=== PATIENT | male | born 1965 | race Caucasian/White ===

== ENCOUNTER → 2018-02-25 | Outpatient (CLI) | payer MEDICAID ==
[~2018-02-25] MED LIST: AMLO5TAB2 PO; ASPI-515 PO; GABA-827 PO; IBUP-1222 PO; LORA10TA3 PO; None per pt.; OMEP-110 PO; TAMS0.4C2 PO
== END ==
LOC: STAR 10:37
PROVIDERS: ATTEND Internal Medicine Gastroenterology
DX: Z02.9 Encounter for administrative examinations, unspecified (principal)

== ENCOUNTER 2018-03-04 07:07 | Day surgery (SDC) | payer MEDICAID ==
[~2018-03-04] VITALS: Ht 172.7 cm; Wt 136.0 kg
[~2018-03-04 07:07] MED LIST changes: -AMLO5TAB2 PO; -ASPI-515 PO; -GABA-827 PO; -IBUP-1222 PO; -LORA10TA3 PO; -OMEP-110 PO; -TAMS0.4C2 PO
[2018-03-04] MEDS ORDERED: LACTATED RINGERS 1,000 ML IV SCH (07:46)
[2018-03-04] MEDS ORDERED: OMEP-110 PO (08:18)
[2018-03-04] MEDS ORDERED: LORA10TA3 PO (08:18)
[2018-03-04] MEDS ORDERED: AMLO5TAB2 PO (08:18)
[2018-03-04] MEDS ORDERED: IBUP-1222 PO (08:18)
[2018-03-04] MEDS ORDERED: ASPI-515 PO (08:18)
[2018-03-04] MEDS ORDERED: GABA-827 PO (08:18)
[2018-03-04] MEDS ORDERED: TAMS0.4C2 PO (08:18)
[2018-03-04] MEDS ORDERED: PROPOFOL 10 MG/ML, 20ML ONE (09:10)
[2018-03-04] MEDS ORDERED: HYDROcodone/APAP 7.5-325MG/15ML UDC PO PRN (10:00)
[2018-03-04] MEDS ORDERED: ONDANSETRON ODT 8 MG PO PRN (10:00)
[2018-03-04] MEDS ORDERED: OXYcodone 5 MG/5 ML ORAL.SOL UDC PO PRN (10:00)
== END 2018-03-04 10:55 | disposition home or self-care (01) ==
LOC: OUT 07:07
PROVIDERS: ATTEND Internal Medicine Gastroenterology
DX: Z12.11 Encounter for screening for malignant neoplasm of colon (principal); I10 Essential (primary) hypertension; J44.9 Chronic obstructive pulmonary disease, unspecified; K21.9 Gastro-esophageal reflux disease without esophagitis; F17.210 Nicotine dependence, cigarettes, uncomplicated; E66.01 Morbid (severe) obesity due to excess calories; Z68.42 Body mass index [BMI] 45.0-49.9, adult; Z79.82 Long term (current) use of aspirin; K57.30 Diverticulosis of large intestine without perforation or abscess without bleeding
CPT/HCPCS: 45378; J2704; J7120